=== PATIENT | female | born 1985 | race Caucasian/White ===

== ENCOUNTER 2017-02-03 13:48 | Emergency (ER) | payer OTHER ==
[~2017-02-03] VITALS: Ht 160 cm; Wt 61.0 kg
[2017-02-03 14:00] VITALS: BP 136/91; PULSE 106; RESP 16; TEMP 98; O2SAT 100
[2017-02-03] MEDS ORDERED: BACT800T5 PO (15:27)
[2017-02-03] MEDS ORDERED: DOXY100C PO (15:27)
--- NOTE | 2017-02-03 15:31 | PD ---
HPI Chief Complaint: Skin Problem Time Seen by Provider: 15:27 Travel History International Travel<30 days: No Contact w/Intl Traveler<30days: No Traveled to known affect area: No History of Present Illness HPI This patient complains of an infected lesion on the left nasal crease. Duration 5 days. Symptoms severity is moderate. No active drainage. No documented fever. No alleviating factors. PFSH Past Medical History Medical History: Denies Significant Hx Tetanus Vaccination: Never Vaccinated Influenza Vaccination: Yes ?: Not LMP: 01/23/2017 Past Surgical History Tonsillectomy: Yes Social History Alcohol Use: No Tobacco Use: No Substance Use: No Allergies-Medications (Allergen,Severity, Reaction): Coded Allergies: No Known Allergies (Verified , 02/03/17) Reported Meds & Prescriptions Reported Meds & Active Scripts Active Doxycycline Hyclate 100 Mg Cap 100 Mg PO BID Bactrim DS (Sulfamethoxazole-Trimethoprim) 800-160 Mg Tab 1 Tab PO BID Review of Systems General / Constitutional: No: Fever HENT: No: Headaches Cardiovascular: No: Chest Pain or Discomfort Physical Exam Narrative Face: Has an area of scabbed and crusting in the left nasal crease. No fluctuance or drainage. There is a bit of yellow honey crusting there Oral cavity clear Psych: Normal mood and affect. Normal insight and judgment. NECK: Symmetrical appearance, midline trachea. No mass or crepitus. Thyroid without enlargement, tenderness, or mass. Data Data Last Documented VS Vital Signs Date Time Temp Pulse Resp B/P (MAP) Pulse Ox O2 Delivery O2 Flow Rate FiO2 02/03/17 15:00 16 02/03/17 14:00 98.0 106 136/91 (106) 100 MDM Medical Decision Making Medical Screen Exam Complete: Yes Emergency Medical Condition: Yes Medical Record Reviewed: Yes Differential Diagnosis Infected lesion, boil, facial cellulitis Narrative Course I have reviewed the patient's electronic medical record. Presentation suggests a staph infection, we'll treat for M RSA with Bactrim and doxycycline for one week No indication for I&D. There is no fluctuance and nothing to culture Warm compresses recommended Follow-up with primary care but return visit is welcome if things do not get better after a few days or worsen at any time Diagnosis Primary Impression: Facial infection Additional Instructions: The patient was advised to follow up with their physician and return if they worsen. Use warm compresses Med/Other Pt SpecificInfo: Prescription(s) given Scripts Doxycycline Hyclate (Doxycycline Hyclate) 100 Mg Cap 100 MG PO BID for Infection, #14 CAP 0 Refills Prov: Timothy Hart MD 02/03/17 Sulfamethoxazole-Trimethoprim (Bactrim DS) 800-160 Mg Tab 1 TAB PO BID for Infection, #14 TAB 0 Refills Prov: Timothy Hart MD 02/03/17 Disposition: 01 DISCHARGE HOME Condition: Stable Timothy Hart MD Feb 03, 2017 15:31
== END 2017-02-03 15:42 | disposition home or self-care (01) ==
LOC: PHED 13:48 → PHEFT 15:42
DX: L08.9 Local infection of the skin and subcutaneous tissue, unspecified (principal)
CPT/HCPCS: 99284

== ENCOUNTER → 2017-02-06 | Outpatient (CLI) | payer OTHER ==
[~2017-02-06] MED LIST: BACT800T5 PO; DOXY100C PO
[2017-02-07 23:54] LABS: HSV2 IGM IFA NEGATIVE
[2017-02-09 09:01] LABS: HSV IGM 1 TITER ND TITER; HSV IGM II TITER ND TITER
== END ==
LOC: CLAB 08:36
PROVIDERS: ATTEND Obstetrics & Gynecology
DX: Z11.3 Encounter for screening for infections with a predominantly sexual mode of transmission (principal)
CPT/HCPCS: 36415; 80074; 86592; 86695; 86696

== ENCOUNTER → 2017-04-16 | Day surgery (SDC) | payer OTHER ==
--- NOTE | 2017-04-15 21:19 | MH ---
cc: JULIET ANDREA DATE OF ADMISSION 04/16/2017 HISTORY OF PRESENT ILLNESS The patient is a 32-year-old 3, para 3 who presents with a history of irregular bleeding over the last year and a half. The patient has had normal ultrasound but the bleeding has continued to be irregular and she desires operative intervention and declined medical intervention. Her cycles she has spotting for four to five days and then two to three days of heavy flow with clotting. PAST MEDICAL HISTORY Negative. PAST SURGICAL HISTORY 1. She has had an excision of a bartholin's cyst. 2. Tonsillectomy. 3. Cryosurgery of her cervix. OBSTETRICAL HISTORY She is a three pregnancies with vaginal deliveries. GYNECOLOGIC HISTORY 1. The irregular menses as mentioned for the last year and a half or so. 2. She has had a history of chlamydia. 3. She has a abnormal Pap smear that led to cryo in 2007. Her last abnormal Pap smear was in 2010. SOCIAL HISTORY Negative for cigarettes, alcohol or street drugs. The patient is single. 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 ALLERGIES NONE. FAMILY HISTORY Noncontributory. PHYSICAL EXAMINATION VITAL SIGNS: Her height is 5' 6". Her weight is 138. Her blood pressure is 118/78. GENERAL: In general she is in no acute distress. HEART: Regular rate and rhythm. LUNGS: Clear to auscultation bilaterally. ABDOMEN: Her abdomen is soft, nontender, nondistended. EXTREMITIES: Lower extremities are nontender. Non edematous. PELVIC: Bimanual exam normal size uterus. No adnexal masses or tenderness. IMPRESSION Menorrhagia with irregular cycles. PLAN The plan is for a D&C with [facility]. Risks, benefits, alternatives have been reviewed. The patient does desire to proceed. MD DAFNE Christianson/ANDER /8:03 PM /9:10 PM PAUL
[~2017-04-16] VITALS: Ht 162.6 cm; Wt 61.3 kg
[~2017-04-16] MED LIST changes: +*MEPERIDINE 25 MG INJ VIAL PERIprocedural Use ONLY ONE; +ACETAMINOPHEN 1000 MG/100 ML 100 ML IV ONE; -BACT800T5 PO; +CHLORHEXIDINE GLUCONATE 2 % 1 PACK (2 CLOTHS) TOPICAL PRN; +DO NOT ADM ANY ANTICOAGULANT DRUGS PRN; -DOXY100C PO; +LACTATED RINGER'S 1000 ML IV PRN; +METOPROLOL TARTRATE 25 MG TAB PO PRN; +MULT-65 PO; +ONDANSETRON HCL 4 MG/2 ML VIAL IV PUSH PRN; +PERC5TAB12 PO; +POVIDONE IODINE 5% (ANTISEPSIS KIT) 4 APPLICATIONS EACH NARE PRN; +SODIUM CHLORID 0.9% 500 ML IV PRN; +oxyCODONE/ACETAMINOPHEN 10 MG/325 MG TAB PO PRN; +oxyCODONE/ACETAMINOPHEN 5 MG/325 MG TAB PO PRN
[2017-04-16 07:10] LABS: AUTOMATED NEUTROPHIL # 3.4 TH/MM3 (1.8-7.7); BASOPHIL % 0.3 % (0.0-2.0); EOSINOPHIL # 0.1 TH/MM3 (0-0.4); EOSINOPHIL % 1.1 % (0.0-4.0); HEMATOCRIT 39.4 % (35.0-46.0); HEMO FLAGS DIFF FINAL; LYMPH % 24.9 % (9.0-44.0); LYMPHOCYTE # 1.3 TH/MM3 (1.0-4.8); MEAN CELL VOLUME 89.3 FL (80.0-100.0); MEAN CORPUSCULAR HEMOGLOBIN 30.9 PG (27.0-34.0); MEAN CORPUSCULAR HGB CONC 34.6 % (32.0-36.0); MONO % 7.5 % (0.0-8.0); NEUT % 66.2 % (16.0-70.0); PLATELET COUNT 254 TH/MM3 (150-450); RED BLOOD COUNT 4.42 MIL/MM3 (4.00-5.30); WHITE BLOOD COUNT 5.1 TH/MM3 (4.0-11.0)
--- NOTE | 2017-04-16 09:00 | HHI.DCPOC ---
Discharge Care Plan Diagnosis: (1) Menorrhagia with irregular cycle Report Symptoms to Your Doctor -Temperature above 100.5 degrees -Redness, of incision or excessive or foul smelling drainage -Unusual pain or calf pain -Increased vaginal bleeding -Painful or difficulty urinating -Feelings of extreme sadness or anxiety after 2 weeks Goals to Promote Your Health * To prevent worsening of your condition and complications * To maintain your health at the optimal level Directions to Meet Your Goals Take your medications as prescribed Follow your dietary instruction Follow activity as directed Ensure plenty of rest for recovery Drink fluids for hydration Keep your appointments as scheduled Take your immunizations and boosters as scheduled If your symptoms worsen call your PCP, if no PCP go to Urgent Care Center or Emergency Room Smoking is Dangerous to Your Health. Avoid second hand smoke Call the 24-hour crisis hotline for domestic abuse at Austyn Buckley MD Apr 16, 2017 09:00
--- NOTE | 2017-04-16 09:56 | MP ---
cc: AUSTYN ANDREA DATE OF SURGERY 04/16/2017 PREOPERATIVE DIAGNOSIS Menorrhagia. POSTOPERATIVE DIAGNOSIS Menorrhagia. SURGEON Austyn Andrea MD ANESTHESIA General. PROCEDURE D&C with [facility]. ESTIMATED BLOOD LOSS Minimal. SPECIMEN Endometrial curettings. COUNTS Counts correct x2. DISPOSITION Stable in the PACU. FINDINGS Normal endometrium with the exception of some slightly thickened tissue and blood clot noted on the patient's left side of the uterus. Normal tubal ostia bilaterally. No obvious masses or fibroids noted. DESCRIPTION OF PROCEDURE After informed consent was obtained. The patient is taken to the operating room, prepped and draped in normal sterile fashion for surgery with her legs in candy-cane stirrups. A speculum was inserted into the vagina. The anterior lip of the cervix was grasped using a single-tooth tenaculum. The cervix was serially dilated to accommodate the [facility] hysteroscope. Once this was done the findings previously noted were revealed. Next, under direct visualization, the [facility] device was used to curette all four quadrants of the uterus, paying particular attention to that area on the patient's left side of the blood clot and slightly thickened tissue and by the end of the case this had been completely removed. We had a fluid deficit of approximately 800 cc. All instruments were removed from the patient's vagina. Counts were correct x2. She was then awakened and extubated and taken to the recovery room in stable condition. Austyn Andrea MD TEG/SSB /9:13 AM /9:54 AM
[2017-04-16 10:46] VITALS: BP 121/80; PULSE 70; RESP 16; TEMP 96.7; O2SAT 100
== END | disposition home or self-care (01) ==
LOC: HSDC 06:00
PROVIDERS: ATTEND Obstetrics & Gynecology
DX: N92.0 Excessive and frequent menstruation with regular cycle (principal)
CPT/HCPCS: 00952; 58558; 84703; 85025; 86850; 86900; 86901; 88305; J0131; J2175; J7120